=== PATIENT | female | born 2005 | race American Indian/Alaskan Native ===

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

== ENCOUNTER 2025-04-23 20:51 | Emergency (ER) | payer OTHER ==
[~2025-04-23] VITALS: Ht 170.2 cm; Wt 91.5 kg
[~2025-04-23 20:51] MED LIST changes: +CEPHALEXIN500 M1 PO
[2025-04-23] MEDS ORDERED: IBUPROFEN 600 MG TAB PO ONE (21:30)
[2025-04-23] MEDS ORDERED: HYDROCODON-ACE1 EA10 PO (23:26)
[2025-04-23] MEDS ORDERED: HYDROCODONE BIT/ACETAMINOPHEN 5/325 MG 1 TAB HOME.PACK PO ONE (23:30)
[2025-04-23 23:52] VITALS: BP 111/91
== END 2025-04-23 23:53 | disposition home or self-care (01) ==
LOC: ED 20:51
DX: S62.341A Nondisplaced fracture of base of second metacarpal bone, left hand, initial encounter for closed fracture (principal); W01.0XXA Fall on same level from slipping, tripping and stumbling without subsequent striking against object, initial encounter
CPT/HCPCS: 29125; 73130; 73200; 99284-25; A9270